=== PATIENT | male | born 1960 | race Two or more races ===

== ENCOUNTER 2019-04-10 20:11 | Emergency (ER) | payer SELFPAY ==
[~2019-04-10] VITALS: Ht 177.8 cm; Wt 79.0 kg
[2019-04-10 20:14] VITALS: BP 150/90
== END 2019-04-10 23:53 | disposition left against medical advice (07) ==
LOC: ER 20:11
DX: Z53.21 Procedure and treatment not carried out due to patient leaving prior to being seen by health care provider (principal)